=== PATIENT | male | born 1985 | race African-American/Black ===

== ENCOUNTER 2024-06-28 08:41 | Emergency (ER) | payer MEDICAID, OTHER ==
[~2024-06-28] VITALS: Ht 182.9 cm; Wt 90.9 kg
[2024-06-28 08:44] VITALS: BP 146/88; PULSE 96; RESP 18; TEMP 97.6; O2SAT 98
--- NOTE | 2024-06-28 09:27 | ED.PDOC ---
Musculoskeletal HPI Comments 38-year-old male with a history of mental health issues presents with family member with a chief complaint of atraumatic bilateral lower extremity pain. Chief Complaint: Lower Extremity Time Seen by MD: 09:08 Primary Care Provider: NONE Reviewed Notes: Nurses Notes, Medications, Allergies Allergies: Coded Allergies: Iodine (Verified Allergy, Unknown, 06/28/24) Information Source: Patient, Relative Mode of Arrival: EMS Past Medical History PAST MEDICAL HISTORY: Denies Surgical History: Denies all surgeries Family History Family History: Reviewed,noncontributory to illness Social History Smoker: Non-Smoker Alcohol: Denies ETOH Use Drugs: Denies Drug Use Physical Exam General Appearance: No Apparent Distress, Normal HEENT: Normal ENT Inspection, Pharynx Normal, TMs Normal Neck: Full Range of Motion, Non-Tender, Normal, Normal Inspection Respiratory: Chest Non-Tender, Lungs Clear, No Accessory Muscle Use, No Respiratory Distress, Normal Breath Sounds Cardiovascular: No Edema, No JVD, No Murmur, No Gallop, Normal Peripheral Pulses, Regular Rate/Rhythm Breast Exam: Deferred Gastrointestinal: No Organomegaly, Non Tender, No Pulsatile Mass, Normal Bowel Sounds, Soft Genitalia: Deferred Pelvic: Deferred Rectal: Deferred Extremities: No calf tenderness, Normal capillary refill, Normal inspection, Normal range of motion, Non-tender, No pedal edema Musculoskeletal : Apperance: Normal Neurologic: Alert, 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 Was a procedure done?: No Differential Diagnosis EXT Differential Diagnosis: Sprain, Strain X-Ray, Labs, Meds, VS Vital Signs Date Time Temp Pulse Resp B/P (MAP) Pulse Ox O2 Delivery O2 Flow Rate FiO2 06/28/24 08:44 97.6 96 18 146/88 (107) 98 97.6 X-Ray, Labs, Meds, VS Comment This patient has elected to leave against medical advice. In my opinion, the patient has capacity to leave AMA. The patient is clinically sober, free from distracting injury, appears to have intact insight, judgment, and reason; therefore, the patient has the capacity to make decisions. I explained to the patient that these symptoms may represent a serious underlying medical condition and the patient verbalized understanding of my concerns and understands the consequences of leaving without complete evaluation. I had a discussion with the patient about their workup and results, and informed the patient what the next step in diagnosis and treatment would be, and they verbalized understanding of this as well. I explained the risks of leaving without further workup or treatment, which included reasonably foreseeable complications such as , serious injury, prolonged illness, and permanent disability. I discussed the specific benefits of additional treatment and also offered alternatives to departing AMA, such as assigning the patient a different provider or an alternate workup pathway. However, the patient declined and insisted on leaving against medical advice. I answered all of the patient's questions about their condition and I asked them to follow up with their PCP as soon as possible or return to this ER for further evaluation whenever they choose. Patient voiced understanding. Time of 1ST Reevaluation: 09:26 Reevaluation 1ST: Improved Patient Education/Counseling: Diagnosis, Treatment Family Education/Counseling: Diagnosis, Treatment Departure 1 Departure Time of Disposition: 09:26 Impression: Primary Impression: Left against medical advice Disposition: 07 LEFT AGAINST MEDICAL ADVICE Condition: Poor Critical Care Note Critical Care Time?: No Stability Stability form required: No Heart Score Heart Score: Heart Score Response (Comments) Value History N/A 0 EKG N/A 0 Age N/A 0 Risk Factors N/A 0 Troponin N/A 0 Total 0 PEEWEE OTERO NP June 28, 2024 09:27
== END 2024-06-28 09:22 | disposition left against medical advice (07) ==
LOC: ER 08:41 → EDBD 08:41 → ER 09:22
DX: M79.604 Pain in right leg (principal); M79.605 Pain in left leg; Z91.041 Radiographic dye allergy status

== ENCOUNTER 2024-06-30 14:46 | Emergency (ER) | payer MEDICAID ==
[~2024-06-30] VITALS: Ht 182.9 cm; Wt 91.0 kg
[2024-06-30 16:28] LABS: Basophils # (auto) 0.1 10 ^3/uL (0-0.2); Basophils % (auto) 0.4 % (0.0-2.0); Eosinophils # (auto) 0.1 10 ^3/uL (0-0.8); Eosinophils % (auto) 0.8 % (0.0-7.0); Hematocrit 46.8 % (41.0-53.0); Hemoglobin 15.9 g/dL (13.5-17.5); Lymphocytes # (auto) 2.7 10 ^3/uL (0.4-5.4); Lymphocytes % (auto) 22.3 % (10.0-50.0); Mean Corpuscular Hemoglobin 29.6 pg (28.0-32.0); Mean Corpuscular Hgb Conc. 33.9 g/dL (32.0-36.0); Mean Corpuscular Volume 87.3 fL (80.0-100.0); Monocytes # (auto) 1.4 10 ^3/uL (0-1.3); Monocytes % (auto) 11.4 % (0.0-12.0); Neutrophils # (auto) 7.8 10 ^3/uL (1.6-8.6); Neutrophils % (auto) 65.1 % (37.0-80.0); Nucleated Red Blood Cells % 0.2 %; Platelet Count (auto) 401 10^3/uL (140-450); Red Blood Cells 5.36 10^6/uL (4.5-5.90); Red Cell Distribution Width 12.7 % (11.8-14.3)
[2024-06-30 16:43] LABS: Chloride 104 mmol/L (98-107); Potassium 3.9 mmol/L (3.5-5.1); Sodium 142 mmol/L (136-145)
[2024-06-30 16:44] LABS: Anion Gap 7 (5-15)
[2024-06-30 16:45] LABS: Calcium 9.9 mg/dL (8.7-10.4)
[2024-06-30 16:50] LABS: BUN/Creatinine Ratio 11.4 (10.0-20.0); Blood Urea Nitrogen 12 mg/dL (9-23); Glucose 84 mg/dL (74-106)
[2024-06-30 16:54] LABS: Blood Alcohol < 3.0 mg/dL (<10); Carbon Dioxide 31 mmol/L (20-31)
[2024-06-30 16:55] LABS: Acetaminophen < 2.0 UG/ML (10.0-20.0); Salicylate < 3.0 mg/dL (-30)
--- NOTE | 2024-06-30 17:07 | ED.PDOC ---
Psychiatric HPI Comments 38 y/o M, FLAVIA, presents to the ED for CC of mental health. EMS reports, patient is coming from home where emergency medical services were called by patient's sister due to patient displaying manic and depressed mood. Per patient's sister, patient was at father's house following his x2days ago, and has since had an emotional break. Upon arrival to the ED, patient is A&Ox4 however, speaking illogically when questioned. Per EMS, patient recently started Depakote with his last dosage being as of today (06/30/24). Patient denies suicidal ideation, homicidal ideation, auditory hallucinations, or visual hallucinations. No other symptoms or modifying factors present at this time. Chief Complaint: Mental Health Time Seen by MD: 16:35 Primary Care Provider: NONE Reviewed Notes: Nurses Notes, Medications, Allergies Information Source: Relative (Sibling), Emergency Med Personnel Mode of Arrival: EMS Severity of Pain: None Severity of Mental Status: Moderate Severity of Symptoms: None Timing: Days Duration: Since onset Prehospital treatment: None Presents with: Bizarre Behavior Stressors: Family History of: None Quality: Hopelessness Associated signs and symptoms: None Past Medical History PAST MEDICAL HISTORY: Denies Surgical History: Denies all surgeries Family History Family History: Reviewed,noncontributory to illness Social History Smoker: Non-Smoker Alcohol: Denies ETOH Use Drugs: Denies Drug Use Unable to Obtain due to: Other (emtional break/emtional distress) Physical Exam General Appearance: Moderate Distress, Normal HEENT: Normal ENT Inspection, Pharynx Normal, TMs Normal Neck: Full Range of Motion, Non-Tender, Normal, Normal Inspection Respiratory: Chest Non-Tender, Lungs Clear, No Accessory Muscle Use, No Respiratory Distress, Normal Breath Sounds Cardiovascular: No Edema, No Murmur, No Gallop, Normal Peripheral Pulses, Regular Rate/Rhythm Breast Exam: Deferred Gastrointestinal: No Organomegaly, Non Tender, No Pulsatile Mass, Normal Bowel Sounds, Soft Genitalia: Deferred Pelvic: Deferred Rectal: Deferred Extremities: No calf tenderness, Normal capillary refill, Normal inspection, Normal range of motion, Non-tender, No pedal edema Musculoskeletal : Apperance: Normal Neurologic: Disoriented, No Motor Deficits, Normal Affect, No Sensory Deficits Cerebellar Function: Normal Reflexes: Normal Skin: Dry, Normal Color, Warm Lymphatic: No Adenopathy Was a procedure done? Was a procedure done?: No Psych Differential Dx Psych. Differential Dx: Depression, Hopeless X-Ray, Labs, Meds, VS Vital Signs Date Time Temp Pulse Resp B/P (MAP) Pulse Ox O2 Delivery O2 Flow Rate FiO2 06/30/24 19:51 115 29 97 Room Air* 0 21 06/30/24 19:50 98.7 115 29 141/97 (112) 97 98.7 06/30/24 14:50 98.6 106 16 11/90 (64) 99 98.6 Lab Test 06/30/24 22:43 06/30/24 16:10 Range/Units Urine Color Yellow Yellow Urine Clarity Clear Clear Urine pH 6.5 5.0-9.0 Urine Specific [place] 1.034 1.001-1.035 Urine Protein Trace H Negative Urine Ketones 2+ H Negative Urine Blood Negative Negative /uL Urine Nitrite Negative Negative Urine Bilirubin Negative Negative Urine Urobilinogen 8 H Negative mg/dL Urine Leukocyte Esterase Negative Negative /uL Urine RBC 1 0 - 3 /hpf Urine Microscopic WBC 1 0-3 /HPF Urine Squamous Epithelial Cells Few <5 /hpf Urine Bacteria None seen None Seen /hpf Urine Mucus Few None Seen Urine Glucose Normal Normal mg/dL Urine Opiates Screen Neg NEGATIVE Urine Fentanyl Screen Neg NEGATIVE Urine Barbiturates Screen Neg NEGATIVE Urine Phencyclidine Screen Neg NEGATIVE Urine Amphetamines Screen Neg NEGATIVE Urine Benzodiazepines Screen Neg NEGATIVE Urine Cocaine Screen Neg NEGATIVE Urine Cannabinoids Screen Pos NEGATIVE White Blood Count 12.0 H 4.4-10.8 10^3/uL Red Blood Count 5.36 4.5-5.90 10^6/uL Hemoglobin 15.9 13.5-17.5 g/dL Hematocrit 46.8 41.0-53.0 % Mean Corpuscular Volume 87.3 80.0-100.0 fL Mean Corpuscular Hemoglobin 29.6 28.0-32.0 pg Mean Corpuscular Hemoglobin Concent 33.9 32.0-36.0 g/dL Red Cell Distribution Width 12.7 11.8-14.3 % Platelet Count 401 140-450 10^3/uL Mean Platelet Volume 7.9 6.9-10.8 fL Neutrophils (%) (Auto) 65.1 37.0-80.0 % Lymphocytes (%) (Auto) 22.3 10.0-50.0 % Monocytes (%) (Auto) 11.4 0.0-12.0 % Eosinophils (%) (Auto) 0.8 0.0-7.0 % Basophils (%) (Auto) 0.4 0.0-2.0 % Neutrophils # (Auto) 7.8 1.6-8.6 10 ^3/uL Lymphocytes # (Auto) 2.7 0.4-5.4 10 ^3/uL Monocytes # (Auto) 1.4 H 0-1.3 10 ^3/uL Eosinophils # (Auto) 0.1 0-0.8 10 ^3/uL Basophils # (Auto) 0.1 0-0.2 10 ^3/uL Nucleated Red Blood Cells 0.2 % Sodium Level 142 136-145 mmol/L Potassium Level 3.9 3.5-5.1 mmol/L Chloride Level 104 98-107 mmol/L Carbon Dioxide Level 31 20-31 mmol/L Anion Gap 7 5-15 Blood Urea Nitrogen 12 9-23 mg/dL Creatinine 1.05 0.700-1.30 mg/dL Glomerular Filtration Rate Calc 93 >90 mL/min BUN/Creatinine Ratio 11.4 10.0-20.0 Serum Glucose 84 74-106 mg/dL Calcium Level 9.9 8.7-10.4 mg/dL Salicylates Level < 3.0 -30 mg/dL Acetaminophen Level < 2.0 L 10.0-20.0 UG/ML Plasma/Serum Blood Alcohol < 3.0 <10 mg/dL Time of 1ST Reevaluation: 17:05 Reevaluation 1ST: Unchanged Patient Education/Counseling: Diagnosis, Treatment Family Education/Counseling: Diagnosis, Treatment Departure 1 Departure Time of Disposition: 16:25 (Patient presented with depression confusion. Patient eloped prior to completion of the workup.) Impression: Primary Impression: Acute metabolic encephalopathy Disposition: ADMITTED INPATIENT Admit to: Med Surg Condition: Serious Critical Care Note Critical Care Time?: No Stability Stability form required: No Heart Score Heart Score: Heart Score Response (Comments) Value History N/A 0 EKG N/A 0 Age N/A 0 Risk Factors N/A 0 Troponin N/A 0 Total 0 I personally scribed for JOSE VIDAL MD ([email or web address]) on 06/30/24 at 17:07. Electronically submitted by Harper Zimmerman ([email or web address]). JOSE VIDAL MD June 30, 2024 17:07
[2024-06-30 19:50] VITALS: BP 141/97; TEMP 98.7
[2024-06-30] MEDS: LORazepam 0.5 MG TAB PO ONE (19:50)
[2024-06-30 19:51] VITALS: PULSE 115; RESP 29; O2SAT 97
[2024-06-30 22:45] LABS: Urine Bacteria None Seen /hpf (None Seen)
[2024-06-30 22:54] LABS: Urine Blood Negative /uL (Negative); Urine Clarity Clear (Clear); Urine Color Yellow (Yellow); Urine Mucus FEW (None Seen); Urine Protein, UAD TRACE (Negative); Urine Specific Gravity 1.034 (1.001-1.035); Urine Squamous Epithelial Cell FEW /hpf (<5); Urine Urobilinogen 8 mg/dL (Negative); Urine WBC 1 /HPF (0-3); Urine pH 6.5 (5.0-9.0)
[2024-06-30 23:08] LABS: Amphetamine Screen, Urine Neg (NEGATIVE); Barbiturate Scree,Urine Neg (NEGATIVE); Benzodiazephine Screen, Urine Neg (NEGATIVE); Cannabinoid Screen, Urine Pos (NEGATIVE); Cocaine Screen, Urine Neg (NEGATIVE); Opiate Scree,Urine Neg (NEGATIVE); Phencyclidine Screen, Urine Neg (NEGATIVE)
--- NOTE | 2024-07-01 00:40 | DVHINCON2 ---
Date of Service if different f: July 01, 2024 Time of Service: 00:13 Consult Consult Note PSYCHIATRY ED NEW CONSULT HPI: 38 yo M pt with PPH of depression and bipolar presents to ED BIBA for safety, psychiatric stabilization, and possible med initiation/optimization in setting of anxiety and mood symptoms. 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 Pt describes breakdown as panic like symptoms, chest pressure/tightness, confusion, sad mood, irritability, some disorganized speech, emotional dysregulation and mood lability. Denies SI/HI/AVH/paranoia/catatonic/perceptual disturbances. No overt manic, psychotic, MDD, cognitive, dissociative phenomena, panic, OCD, PTSD, or somatic symptoms noted Pt currently does not have active outpt MH services established at this time although has sought outpt MH services in recent past. Currently rx'd Depakote 500 mg bid (recently started), denies any med noncompliance Freq THC use, denies ETOH or IDU with children whom he resides with, unemployed/ssi, some support system noted (immediate family) Unknown trauma hx. Denies FH of psych hospitalizations, suicide attempts, or completed suicides No acute medical/chronic pain issues, hx of seizures/TBI, or recent head injuries, NKDA Denies hx of SI/SIB/SA/PSG although hx of prior psych hospitalizations for depression. Denies history of violence, unprovoked aggression, or assaultive behaviors. Denies any legal problems Currently denies SI/HI/AVH. Does not have access to firearms MSE: General Appearance/Behavior: Alert and awake; appears stated age, fair grooming and hygiene; calm and cooperative, fair eye contact, no PMA/PMR Speech: coherent, rrr Thought Process: linear, logical, bit concrete.limited Thought Content: Abnormal Thoughts and Perceptions: denies dissociative symptoms Homicidality / Violent Thoughts: adamantly denies HI Suicidality: adamantly denies SI Hallucinations: denies AVTH Delusions: denies paranoia, persecutory, or grandiose delusions Obsessions /compulsions: None Judgment and Insight: marginal.fair.questionable Mood & Affect: 'feeling okay now" with mood-congruent, somewhat restricted but appropriate Orientation: oriented to person, place, time Attention/Concentration: appears intact Cognition: grossly intact Assessment: 38 yo M pt with PPH of depression and bipolar presents to ED BIBA for safety, psychiatric stabilization, and possible med initiation/optimization in setting of acute anxiety and mood symptoms Currently denies SI/HI/AVH. However presents with chest pressure/tightness, confusion, sad mood, irritability, some disorganized speech, emotional dysregulation and mood lability related to recent loss of parent Pt requests inpatient psychiatric admission for safety, psychiatric stabilization, and possible medication initiation/optimization. Pt willing to transfer to inpt psych facility voluntarily. Does NOT meet 5150 hold criteria Primary Diagnosis: Adjustment disorder with other symptoms. R/o Bipolar disorder, mre mixed, w/o PF. THC use d/o, unspecified Recommend VOL transfer to inpt psych facility for higher level of care per pts request 1:1 sitter is not recommended Obtain collateral info from external sources if/when available (none during interview despite attempts to contact spouse) Recommend continuation of current outpt med regimen - depakote 500 mg bid Defer any psychotropic med changes to accepting inpt psych facility Risks/benefits/alternative treatments discussed, informed consent provided by pt If patient later refuses voluntary hospitalization/ requests to be discharged f [facility] ED prior to transfer or if no voluntary beds are available, pt can be safely discharged WITHOUT psych reassessment or 5150 evaluation unless spouse/family members express safety concerns Pt verbalized understanding and is receptive to above tx plan This case was discussed with ED nurse/provider and all parties in agreement with above tx plan Ashish Agarwal MD Plan discussed with: Patient ASHISH AGARWAL MD July 01, 2024 00:40
[2024-07-01] MEDS: traZODone HCL 50 MG TAB PO ONE (01:14)
== END 2024-07-01 03:18 | disposition left against medical advice (07) ==
LOC: EDBD 14:46 → ER 14:50
DX: G93.41 Metabolic encephalopathy (principal); F32.A Depression, unspecified; Z63.4 Disappearance and death of family member; Z79.899 Other long term (current) drug therapy
CPT/HCPCS: 36415; 80048; 80307; 80320; 80329; 81001; 85025